=== PATIENT | female | born 1960 | race Caucasian/White ===

== ENCOUNTER 2017-08-05 20:24 | Emergency (ER) | payer BC ==
[~2017-08-05] VITALS: Ht 170.2 cm; Wt 97.1 kg
--- NOTE | 2017-08-05 20:24 | NUR ---
BRITTANY C/O FEVER SINCE 3PM. LAST TOOK 1GM TYLENOL 3PM. AT TIMES SHE HAS FELT DIZZY AND MENTIONED THAT TODAY AT WORK THAT HAD HAPPENED. VSS ARIADNA A/OX4 ABLE TO MAKE NEEDS KNOWN. WILL CONTINUE TO MONITOR FOR ANY CHANGES DURING THE SHIFT. AWAITING ER MD EVALUATION
--- NOTE | 2017-08-05 20:25 | NUR ---
ER MD RILEY AT BEDSIDE
--- NOTE | 2017-08-05 22:24 | NUR ---
PT TO ER BED
[2017-08-05] MEDS ORDERED: ACETAMINOPHEN ES 500 MG TABLET ONE (23:37)
[2017-08-05 23:41] VITALS: BP 130/75
[2017-08-06] MEDS ORDERED: ACETAMINOPHEN ES 500 MG TABLET PO ONE
== END 2017-08-05 23:41 | disposition home or self-care (01) ==
LOC: ER 20:29
DX: R50.9 Fever, unspecified (principal); R42 Dizziness and giddiness; R53.1 Weakness; I10 Essential (primary) hypertension; Z88.5 Allergy status to narcotic agent
CPT/HCPCS: 99283; A4606; Z7610